=== PATIENT | male | born 1930 | race Caucasian/White ===

== ENCOUNTER 2017-04-16 22:31 | Inpatient (IN) | payer OTHER, MEDICARE ==
[~2017-04-16] VITALS: Ht 182.9 cm; Wt 57.6 kg
[2017-04-16 22:46] VITALS: BP 156/71; PULSE 79; RESP 16; TEMP 98; O2SAT 99
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
[2017-04-16 23:57] LABS: AUTOMATED NEUTROPHIL # 3.9 TH/MM3 (1.8-7.7); BASOPHIL # 0.1 TH/MM3 (0-0.2); BASOPHIL % 0.9 % (0.0-2.0); EOSINOPHIL # 0.2 TH/MM3 (0-0.4); EOSINOPHIL % 3.6 % (0.0-4.0); HEMATOCRIT 28.9 % (39.0-51.0); HEMO FLAGS DIFF FINAL; LYMPHOCYTE # 1.5 TH/MM3 (1.0-4.8); MEAN CELL VOLUME 95.8 FL (80.0-100.0); MEAN CORPUSCULAR HEMOGLOBIN 32.5 PG (27.0-34.0); MEAN CORPUSCULAR HGB CONC 33.9 % (32.0-36.0); NEUT % 57.5 % (16.0-70.0); PLATELET COUNT 202 TH/MM3 (150-450); RED BLOOD COUNT 3.02 MIL/MM3 (4.50-5.90); RED CELL DISTRIBUTION WIDTH 13.3 % (11.6-17.2); WHITE BLOOD COUNT 6.8 TH/MM3 (4.0-11.0)
--- NOTE | 2017-04-17 00:15 | RADRPT ---
EXAM DATE/TIME: 04/16/2017 23:47 [place] COMPARISON: No previous studies available for comparison. INDICATIONS : Altered mental status. RADIATION DOSE: 56.35 CTDIvol (mGy) MEDICAL HISTORY : Dementia. SURGICAL HISTORY : None. ENCOUNTER: Initial ACUITY: 1 day PAIN SCALE: 0/10 LOCATION: cranial TECHNIQUE: Multiple contiguous axial images were obtained of the head. Using automated exposure control and adj ustment of the mA and/or kV according to patient size, radiation dose was kept as low as reasonably a chievable to obtain optimal diagnostic quality images. DICOM format image data is available electro nically for review and comparison. FINDINGS: CEREBRUM: The ventricles and cortical sulci are widened. There is decreased density in the periventricular whit e matter. No evidence of midline shift, mass lesion, hemorrhage or acute infarction. No extra-axia l fluid collections are seen. POSTERIOR FOSSA: The cerebellum and brainstem are intact. The 4th ventricle is midline. The cerebellopontine angle i s unremarkable. EXTRACRANIAL: There is chronic change of the left globe with the globe being small and heavily calcified. SKULL: The calvaria is intact. No evidence of skull fracture. CONCLUSION: 1. No acute intracranial abnormality. 2. Age-related atrophy. 3. Suspected small vessel ischemic change in the white matter. 4. Chronic change at the left globe. Jose Ramon Agrawal MD on April 17, 2017 at 0:12 Board Certified Radiologist. This report was verified electronically.
[2017-04-17 00:24] LABS: ALT (GPT) 17 U/L (12-78); ANION GAP 5 MEQ/L (5-15); AST (GOT) 31 U/L (15-37); BICARBONATE 27.9 MEQ/L (21.0-32.0); BLOOD UREA NITROGEN 22 MG/DL (7-18); CHLORIDE 109 MEQ/L (98-107); GLOMERULAR FILTRATION RATE 56 ML/MIN (>89); SODIUM (NA) 142 MEQ/L (136-145)
[2017-04-17 00:25] LABS: ALCOHOL LESS THAN 3 MG/DL (0-5); POTASSIUM 4.1 MEQ/L (3.5-5.1)
[2017-04-17 00:29] LABS: ALKALINE PHOSPHATASE 81 U/L (45-117); TOTAL BILIRUBIN ADULT 0.6 MG/DL (0.2-1.0)
--- NOTE | 2017-04-17 07:31 | EKG ---
Date Performed: 04/16/2017 Time Performed: 23:33:19 PTAGE: 86 years EKG: Baseline artifact present Sinus rhythm WITH FIRST DEGREE AV BLOCK ABNORMAL ECG NO PREVIOUS TRACING DOCTOR: Enzo Stein Interpretating Date/Time 04/17/2017 07:30:04
[2017-04-17 08:08] LABS: BLOOD, URINE NEG (NEG); COMMENT (UR) CULT NOT INDICATED; CULTURE IF INDICATED CULT NOT INDICATED; GLUCOSE,URINE NEG (NEG); KETONE, URINE NEG (NEG); MUCUS URINE FEW /lpf (OCC); NITRITE,URINE NEG (NEG); SQUAMOUS EPITHELIAL CELL URINE <1 /hpf (0-5); URINE COLOR YELLOW (YELLW/STRAW)
[2017-04-17 08:12] VITALS: BP 166/72; PULSE 75; RESP 16; TEMP 98; O2SAT 98
[2017-04-17] MEDS ORDERED: ATOR40TA16 PO (08:38)
[2017-04-17] MEDS ORDERED: LUMI0.01 RIGHT EYE (08:38)
[2017-04-17] MEDS ORDERED: SERT-129 PO (08:38)
[2017-04-17] MEDS ORDERED: COMB0.2S EACH EYE (08:38)
[2017-04-17] MEDS ORDERED: DUTA1CAP2 PO (08:38)
[2017-04-17] MEDS ORDERED: TAMS5CAP PO (08:38)
[2017-04-17] MEDS ORDERED: CITA20TA4 PO (08:38)
[2017-04-17 09:05] VITALS: BP 161/75; PULSE 58; RESP 18; TEMP 97.8; O2SAT 99
[2017-04-17] MEDS ORDERED: LORazepam 0.5 MG TAB age > 65 yrs PO PRN (10:00)
[2017-04-17] MEDS ORDERED: LORazepam 2 MG/ML VIAL - age > 65 yrs IM PRN (10:00)
[2017-04-17] MEDS ORDERED: diphenhydrAMINE HCL 50 MG CAP - HS PRN PO (10:00)
[2017-04-17] MEDS ORDERED: ACETAMINOPHEN 325 MG TAB PO PRN (10:00)
[2017-04-17] MEDS ORDERED: MAGNESIUM HYDROXIDE SUSP 30 ML CUP PO PRN (10:00)
[2017-04-17] MEDS ORDERED: ALUMINUM/MAGNESIUM/SIMETH 30 ML CUP PO PRN (10:00)
[2017-04-17] MEDS ORDERED: diphenhydrAMINE HCL 50 MG/ML VIAL - HS PRN IM (10:00)
[2017-04-17 19:45] VITALS: BP 168/77; PULSE 60; RESP 16
[2017-04-17] MEDS: REMOVE OLD NICOTINE PATCH T-DERMAL SCH (21:00)
[2017-04-18 05:43] VITALS: BP 175/77; PULSE 70; RESP 18; TEMP 98.2
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
[2017-04-18] MEDS: NICOTINE 21 MG/24 HR PATCH T-DERMAL SCH (09:00)
[2017-04-18] MEDS: FINASTERIDE 5 MG TAB PO SCH (10:45)
[2017-04-18 10:47] LABS: ANION GAP 8 MEQ/L (5-15); BICARBONATE 29.2 MEQ/L (21.0-32.0); BLOOD UREA NITROGEN 11 MG/DL (7-18); CHLORIDE 105 MEQ/L (98-107); GLOMERULAR FILTRATION RATE 85 ML/MIN (>89); POTASSIUM 3.5 MEQ/L (3.5-5.1); SODIUM (NA) 142 MEQ/L (136-145)
[2017-04-18 10:54] LABS: HDL CHOLESTEROL 49.2 MG/DL (40.0-60.0); LDL CHOLESTEROL 83 MG/DL (0-99)
[2017-04-18] MEDS ORDERED: BRIMONIDINE TARTRATE 0.2% OPHT SOLN 5 ML BTL EACH EYE SCH (11:00)
[2017-04-18 14:14] LABS: FREE T4 1.16 NG/DL (0.76-1.46)
--- NOTE | 2017-04-18 14:20 | HHI.FF ---
Face to Face Verification Diagnosis: (1) Dementia, Alzheimer's, with behavior disturbance Home Health Nursing Order: Signs/symptoms of disease process Medication education-adverse effect Instructions: Home psych nursing as well. Scrap Breaker Order: To Evaluate: Living conditions/environment, Support services Order: To Provide: Long range planning, Community services I have seen patient Maxim Mclean on 04/18/17. My clinical findings support the need for the requested home health care services because: Need for psychosocial assistance Impaired cognition/judgement I certify that my clinical findings support that this patient is homebound because: Impaired cognitive ability/safety Need for psychosocial assistance Raul Parada MD Apr 18, 2017 14:20
[2017-04-18] MEDS: BRIMONIDINE TARTRATE 0.2% OPHT SOLN 5 ML BTL EACH EYE SCH ×2 (14:24→20:59)
[2017-04-18] MEDS: TIMOLOL MALEATE 0.5% OPHT SOLN 5 ML BTL EACH EYE SCH ×2 (14:24→20:59)
[2017-04-18 14:45] LABS: AUTOMATED NEUTROPHIL # 5.8 TH/MM3 (1.8-7.7); BASOPHIL % 0.5 % (0.0-2.0); EOSINOPHIL # 0.1 TH/MM3 (0-0.4); EOSINOPHIL % 1.7 % (0.0-4.0); HEMATOCRIT 35.1 % (39.0-51.0); HEMO FLAGS DIFF FINAL; LYMPH % 15.8 % (9.0-44.0); LYMPHOCYTE # 1.3 TH/MM3 (1.0-4.8); MEAN CELL VOLUME 96.2 FL (80.0-100.0); MEAN CORPUSCULAR HEMOGLOBIN 31.6 PG (27.0-34.0); MEAN CORPUSCULAR HGB CONC 32.8 % (32.0-36.0); MONO % 11.8 % (0.0-8.0); NEUT % 70.2 % (16.0-70.0); PLATELET COUNT 200 TH/MM3 (150-450); RED BLOOD COUNT 3.65 MIL/MM3 (4.50-5.90); RED CELL DISTRIBUTION WIDTH 13.2 % (11.6-17.2); WHITE BLOOD COUNT 8.3 TH/MM3 (4.0-11.0)
[2017-04-18 16:07] LABS: HEMOGLOBIN A1a 1.4 %; HEMOGLOBIN A1b 1.6 %; HEMOGLOBIN Ao 86.2 %; HEMOGLOBIN LA1C 1.7 %; HEMOGLOBIN P3 3.5 %
--- NOTE | 2017-04-18 18:14 | PD.CONS ---
HPI Service [facility] Consult Requested By Psychiatry Reason for Consult Medical management Primary Care Physician Unknown Diagnoses: History of Present Illness 86 year-old man with a history of hyperlipidemia, anxiety, BPH was admitted to inpatient psychiatry secondary to acute mood disorder under Valdez act. Patient denies suicidal or homicidal ideation. [facility] has been consulted for medical management and on admission patient with mildly elevated TSH, normochromic normocytic anemia and currently elevated BP. He denies any chest pain or shortness of breath. Review of Systems Except as stated in HPI: all other systems reviewed are Neg Past Family Social History Allergies: Coded Allergies: No Allergy Information Available (Verified Allergy, Unknown, 04/17/17) Past Medical History Hyperlipidemia BPH Anxiety Past Surgical History No previous surgery Reported Medications See EMR Family History Noncontributory Social History No report of tobacco, alcohol or illicit drug intake Physical Exam Vital Signs Vital Signs Date Time Temp Pulse Resp B/P (MAP) Pulse Ox O2 Delivery O2 Flow Rate FiO2 04/18/17 05:43 98.2 70 18 175/77 (109) 04/17/17 19:45 60 16 168/77 (107) Physical Exam GENERAL: This is a well-nourished, well-developed patient, in no apparent distress. SKIN: + ecchymoses or lesions. Cool and dry. HEAD: Atraumatic. Normocephalic. No temporal or scalp tenderness. EYES: Pupils equal round and reactive. Extraocular motions intact. No scleral icterus. No injection or drainage. ENT: Nose without bleeding, purulent drainage or septal hematoma. Throat without erythema, tonsillar hypertrophy or exudate. Uvula midline. Airway patent. NECK: Trachea midline. No JVD or lymphadenopathy. Supple, nontender, no meningeal signs. CARDIOVASCULAR: Regular rate and rhythm without murmurs, gallops, or rubs. RESPIRATORY: Clear to auscultation. Breath sounds equal bilaterally. No wheezes , rales, or rhonchi. GASTROINTESTINAL: Abdomen soft, non-tender, nondistended. No hepato-splenomegaly , or palpable masses. No guarding. MUSCULOSKELETAL: Extremities without clubbing, cyanosis, or edema. No joint tenderness, effusion, or edema noted. No calf tenderness. Negative Homans sign bilaterally. NEUROLOGICAL: Awake and alert. Cranial nerves II through XII intact. Motor and sensory grossly within normal limits. Five out of 5 muscle strength in all muscle groups. Normal speech. Laboratory Laboratory Tests Test 04/18/17 08:39 04/18/17 14:22 Blood Urea Nitrogen 11 Creatinine 0.85 Random Glucose 79 Calcium Level 9.1 Sodium Level 142 Potassium Level 3.5 Chloride Level 105 Carbon Dioxide Level 29.2 Anion Gap 8 Estimat Glomerular Filtration Rate 85 Hemoglobin A1c 5.2 Triglycerides Level 67 Cholesterol Level 146 LDL Cholesterol 83 HDL Cholesterol 49.2 Cholesterol/HDL Ratio 2.96 Free Thyroxine 1.16 Thyroid Stimulating Hormone 3rd Gen 6.350 White Blood Count 8.3 Red Blood Count 3.65 Hemoglobin 11.5 Hematocrit 35.1 Mean Corpuscular Volume 96.2 Mean Corpuscular Hemoglobin 31.6 Mean Corpuscular Hemoglobin Concent 32.8 Red Cell Distribution Width 13.2 Platelet Count 200 Mean Platelet Volume 7.3 Neutrophils (%) (Auto) 70.2 Lymphocytes (%) (Auto) 15.8 Monocytes (%) (Auto) 11.8 Eosinophils (%) (Auto) 1.7 Basophils (%) (Auto) 0.5 Neutrophils # (Auto) 5.8 Lymphocytes # (Auto) 1.3 Monocytes # (Auto) 1.0 Eosinophils # (Auto) 0.1 Basophils # (Auto) 0.0 CBC Comment DIFF FINAL Differential Comment Ammonia 13 Vitamin B12 Level 548 Result Diagram: 04/18/17 1422 04/18/17 0839 Imaging Last Impressions Head CT 04/16/17 2302 Signed Impressions: Service Date/Time: Sunday, April 16, 2017 23:47 - CONCLUSION: 1. No acute intracranial abnormality. 2. Age-related atrophy. 3. Suspected small vessel ischemic change in the white matter. 4. Chronic change at the left globe. Jose Ramon Agrawal MD Assessment and Plan Assessment and Plan 86 year-old man with Acute mood disorder Anxiety Management per psychiatry Continue current Valdez act Subclinical hypothyroidism Repeat TSH and free T4 in 4-6 weeks Will hold on starting patient on any thyroid medication Normochromic normocytic anemia Check iron study, Hemoccult Monitor H&H Cough Start Mucinex, Tessalon Perles Hypertension Labile BP Start low-dose hydralazine 25 mg by mouth 3 times a day DVT prophylaxis: Encourage ambulation Thank you for this consultation Code Status Full code Discussed Condition With Patient, Donato Coyle MD Apr 18, 2017 18:14
[2017-04-18] MEDS ORDERED: BENZONATATE 100 MG CAP PO PRN (18:15)
[2017-04-18 20:01] LABS: TRANSFERRIN IRON PROFILE 131 MG/DL (200-360)
[2017-04-18] MEDS: REMOVE OLD NICOTINE PATCH T-DERMAL SCH (20:48)
[2017-04-18] MEDS: LATANOPROST 0.005% OPHT SOLN 2.5 ML BTL RIGHT EYE SCH (20:59)
[2017-04-18] MEDS: guaiFENesin E.R. 600 MG TAB PO SCH ×2 (20:59→21:00)
[2017-04-18] MEDS: TAMSULOSIN HCL 0.4 MG CAP PO SCH ×2 (20:59→21:00)
[2017-04-18] MEDS: hydrALAZINE HCL 25 MG TAB PO SCH (21:00)
[2017-04-18] MEDS: ATORVASTATIN 40 MG TAB PO SCH (21:00)
[2017-04-19 06:00] VITALS: BP 146/68; PULSE 59; RESP 17; TEMP 97.8; O2SAT 96
[2017-04-19] MEDS: TIMOLOL MALEATE 0.5% OPHT SOLN 5 ML BTL EACH EYE SCH ×2 (08:48→20:45)
[2017-04-19] MEDS: guaiFENesin E.R. 600 MG TAB PO SCH ×3 (08:49→21:00)
[2017-04-19] MEDS: FERROUS SULFATE 325 MG (65 MG ELEMENTAL IRON) TAB PO SCH ×3 (08:49→21:00)
[2017-04-19] MEDS: hydrALAZINE HCL 25 MG TAB PO SCH ×3 (08:49→20:48)
[2017-04-19] MEDS: FINASTERIDE 5 MG TAB PO SCH (08:50)
[2017-04-19] MEDS: BRIMONIDINE TARTRATE 0.2% OPHT SOLN 5 ML BTL EACH EYE SCH ×2 (09:00→20:46)
[2017-04-19] MEDS: NICOTINE 21 MG/24 HR PATCH T-DERMAL SCH (09:00)
[2017-04-19] MEDS ORDERED: SERTRALINE HCL 100 MG TAB PO SCH (09:00)
--- NOTE | 2017-04-19 09:57 | HHI.PYPN ---
Subjective Remarks Patient seen and examined. Chart reviewed. Case discussed in treatment team. Per nursing staff, the patient refused oral medications last night but did accept eyedrops. He did accept his oral medications this morning per nursing staff. There has been no evidence of physical aggression or violence on the unit. On my examination today, the patient remains somewhat confused. When I ask about the medication refusal, he says that in the past he tried going off of his medications and felt better when he stopped them and so didn't see the need to resume them. Education provided regarding the importance of accepting medications and discussing any medication changes with prescribers. He denies any SI or HI. Denies any AVH. No physical complaints. Review of Systems ROS Limitations: Poor Historian Except as stated in HPI: all other systems reviewed are Neg Mental Status Examination Appearance: Appropriate (in hospital attire) Consciousness: Alert Orientation: Person, Place, Date/Time (again month and year only) Speech: Unremarkable Fund of Knowledge: Inadequate Attention and Concentration: Easily Distracted Memory: Impaired Mood: Appropriate Affect: Blunt Thought Process & Associations: Circumstantial (mild) Hallucination Type: None Delusion Type: None Suicidal Ideation: No Suicidal Plan: No Suicidal Intention: No Homicidal Ideation: No Homicidal Plan: No Homicidal Intention: No Insight: Poor Judgment: Poor Mental Status Exam Remarks No motor abnormalities noted Results Labs Test 04/18/17 14:22 White Blood Count 8.3 TH/MM3 Red Blood Count 3.65 MIL/MM3 Hemoglobin 11.5 GM/DL Hematocrit 35.1 % Mean Corpuscular Volume 96.2 FL Mean Corpuscular Hemoglobin 31.6 PG Mean Corpuscular Hemoglobin Concent 32.8 % Red Cell Distribution Width 13.2 % Platelet Count 200 TH/MM3 Mean Platelet Volume 7.3 FL Neutrophils (%) (Auto) 70.2 % Lymphocytes (%) (Auto) 15.8 % Monocytes (%) (Auto) 11.8 % Eosinophils (%) (Auto) 1.7 % Basophils (%) (Auto) 0.5 % Neutrophils # (Auto) 5.8 TH/MM3 Lymphocytes # (Auto) 1.3 TH/MM3 Monocytes # (Auto) 1.0 TH/MM3 Eosinophils # (Auto) 0.1 TH/MM3 Basophils # (Auto) 0.0 TH/MM3 CBC Comment DIFF FINAL Differential Comment Iron Level 33 MCG/DL Total Iron Binding Capacity 183 MCG/DL Percent Iron Saturation 18.0 % Ammonia 13 MCMOL/L Vitamin B12 Level 548 PG/ML Labs reviewed. Ammonia level and B12 level within normal limits. RPR nonreactive. Anemia improved. Iron studies consistent with iron deficiency and the hospitalist has started patient on iron supplement. Vitals/IOs Vital Signs Date Time Temp Pulse Resp B/P (MAP) Pulse Ox O2 Delivery O2 Flow Rate FiO2 04/19/17 06:00 97.8 59 17 146/68 (94) 96 04/17/17 08:12 Room Air Assessment & Plan Problem List: (1) Dementia, Alzheimer's, with behavior disturbance ICD Codes: G30.8 - Other Alzheimer's disease; F02.81 - Dementia in other diseases classified elsewhere with behavioral disturbance Assessment & Plan Continue Zoloft as ordered. Hospitalist input noted and appreciated. PT and put noted and appreciated; no PT recommended on discharge. Continue to monitor on the inpatient unit. Continue other medications and care as ordered. Justification for Cont. Inpt. High risk for decompensation in less restrictive environment. Discharge Planning Plan is for discharge home with home health into son's care tomorrow pending medical clearance by the hospitalist. Counselor has arranged for primary care follow-up in son's area for patient, and I have instructed the Counselor to update son regarding patient's selective adherence to medications. Request HC Surrog/Guard Advoc?: Yes Problem Qualifiers (1) Dementia, Alzheimer's, with behavior disturbance: Qualified Codes: G30.8 - Other Alzheimer's disease; F02.81 - Dementia in other diseases classified elsewhere with behavioral disturbance Raul Parada MD Apr 19, 2017 09:57
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
[2017-04-19] MEDS ORDERED: FERR325T20 PO (12:49)
[2017-04-19] MEDS ORDERED: TAMS5CAP PO (12:49)
[2017-04-19] MEDS ORDERED: HYDR-3799 PO (12:49)
[2017-04-19] MEDS ORDERED: ATOR40TA16 PO (12:49)
[2017-04-19] MEDS ORDERED: DUTA1CAP2 PO (12:49)
[2017-04-19] MEDS ORDERED: LUMI0.01 RIGHT EYE (12:49)
[2017-04-19] MEDS ORDERED: COMB0.2S EACH EYE (12:49)
[2017-04-19] MEDS ORDERED: SERT-129 PO (12:49)
--- NOTE | 2017-04-19 12:53 | HHI.PR ---
Subjective Remarks Patient seen and examined Denies any chest pain or shortness of breath Complains to be locked into in "nuts place"; patient own words Objective Vitals Vital Signs Date Time Temp Pulse Resp B/P (MAP) Pulse Ox O2 Delivery O2 Flow Rate FiO2 04/19/17 06:00 97.8 59 17 146/68 (94) 96 I/O 04/18/17 04/18/17 04/18/17 04/19/17 04/19/17 04/19/17 07:00 15:00 23:00 07:00 15:00 23:00 Intake Total 360 ml 290 ml Balance 360 ml 290 ml Intake Oral 360 ml 290 ml # Voids 2 5 2 Result Diagram: 04/18/17 1422 04/18/17 0839 Imaging Last Impressions Head CT 04/16/17 2302 Signed Impressions: Service Date/Time: Sunday, April 16, 2017 23:47 - CONCLUSION: 1. No acute intracranial abnormality. 2. Age-related atrophy. 3. Suspected small vessel ischemic change in the white matter. 4. Chronic change at the left globe. Jose Ramon Agrawal MD Objective Remarks GENERAL: NAD SKIN: Warm and dry. HEAD: Normocephalic. EYES: No scleral icterus. No injection or drainage. NECK: Supple, trachea midline. No JVD or lymphadenopathy. CARDIOVASCULAR: Regular rate and rhythm without murmurs, gallops, or rubs. RESPIRATORY: Breath sounds equal bilaterally. No accessory muscle use. GASTROINTESTINAL: Abdomen soft, non-tender, nondistended. MUSCULOSKELETAL: No cyanosis, or edema. BACK: Nontender without obvious deformity. No CVA tenderness. A/P Assessment and Plan 86 year-old man with Acute mood disorder Anxiety Management per psychiatry Continue current [place] act Subclinical hypothyroidism Repeat TSH and free T4 in 4-6 weeks Continue to hold on starting patient on any thyroid medication Normochromic normocytic anemia Iron deficiency anemia-start ferrous sulfate 325 midline by mouth twice a day Monitor H&H Cough Continue Kacey Guzman Hypertension Labile BP Continue low-dose hydralazine 25 mg by mouth 3 times a day DVT prophylaxis: Encourage ambulation Donato Reid MD Apr 19, 2017 12:53
[2017-04-19 18:00] VITALS: BP 78/52; PULSE 68; RESP 18; TEMP 97.7; O2SAT 96
[2017-04-19] MEDS: ATORVASTATIN 40 MG TAB PO SCH (20:46)
[2017-04-19] MEDS: TAMSULOSIN HCL 0.4 MG CAP PO SCH ×2 (20:47→21:00)
[2017-04-19] MEDS: REMOVE OLD NICOTINE PATCH T-DERMAL SCH (21:00)
[2017-04-19] MEDS: LATANOPROST 0.005% OPHT SOLN 2.5 ML BTL RIGHT EYE SCH (21:04)
[2017-04-20 05:45] VITALS: BP 141/68; PULSE 73; RESP 18; TEMP 97.8; O2SAT 96
[2017-04-20] MEDS ORDERED: TAMS5CAP PO (07:07)
[2017-04-20] MEDS ORDERED: ZOLO100T PO ×2 (07:07→07:20)
[2017-04-20] MEDS ORDERED: FINA5TAB2 PO ×3 (07:07→07:20)
[2017-04-20] MEDS ORDERED: FERR325T20 PO (07:07)
[2017-04-20] MEDS ORDERED: HYDR-3799 PO (07:07)
[2017-04-20] MEDS ORDERED: ATOR40TA16 PO (07:07)
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
[2017-04-20] MEDS ORDERED: guaiFENesin ER PO (07:27)
== END 2017-04-20 08:00 | disposition home health service (06) | DRG 57 ==
LOC: NEPD 22:31 → NEDA 04-17 07:38 → H250 04-17 09:05
PROVIDERS: ADMIT Psychiatry & Neurology Psychiatry; ATTEND Psychiatry & Neurology Psychiatry
DX: G30.9 Alzheimer's disease, unspecified (principal); F02.81 Dementia in other diseases classified elsewhere, unspecified severity, with behavioral disturbance; F41.9 Anxiety disorder, unspecified; D50.9 Iron deficiency anemia, unspecified; N40.0 Benign prostatic hyperplasia without lower urinary tract symptoms; H54.62 Unqualified visual loss, left eye, normal vision right eye; H91.90 Unspecified hearing loss, unspecified ear; E03.9 Hypothyroidism, unspecified; E78.5 Hyperlipidemia, unspecified; I10 Essential (primary) hypertension; R05 Cough
CPT/HCPCS: 70450; 80048; 80053; 80061; 80307; 81001; 82140; 82607; 83036; 83540; 83550; 84439; 84443; 85025; 86592; 93005